=== PATIENT | female | born 1955 | race Caucasian/White ===

== ENCOUNTER → 2018-12-30 | Outpatient (CLI) | payer OTHER ==
[2018-12-30 11:20] LABS: HEMATOCRIT 42.2 % (37.0-47.0); HEMOGLOBIN 14.1 gm/dL (12.0-15.0); MCH 30.4 pg (26.0-34.0); MCHC 33.5 g/dL (28.0-37.0); MCV 90.5 fL (80.0-100.0); MPV 7.2 fl. (7.2-11.1); RBC 4.66 mil/uL (4.20-5.00); RDW-CV 12.6 % (10.5-14.5); WBC 9.1 thou/uL (4.0-11.0)
[2018-12-30 11:54] LABS: ALBUMIN 3.6 g/dL (3.4-5.0); ALKALINE PHOSPHATASE 107 U/L (46-116); ANION GAP 7 mmol/L (7-16); BUN 11 mg/dL (7-18); CALCIUM 9.6 mg/dL (8.5-10.1); CHLORIDE 105 mmol/L (98-107); CO2 30 mmol/L (21-32); CREATININE 0.8 mg/dL (0.6-1.3); GLUCOSE 91 mg/dL (70-99); POTASSIUM 4.4 mmol/L (3.5-5.1); SGOT 26 U/L (15-37); SGPT 25 U/L (30-65); SODIUM 142 mmol/L (136-145); TOTAL BILIRUBIN 0.4 mg/dL (<0.1-1.0); TOTAL PROTEIN 7.2 g/dL (6.4-8.2)
[2018-12-30 13:29] LABS: CHOLESTEROL 231 mg/dL (<200); HDL CHOLESTEROL 39 mg/dL (>40); LDL CHOLESTEROL 154 mg/dL (<100); SERUM ASSESSMENT Clear; TC:HDL 5.9 Ratio (Not establshd); TRIGLYCERIDE 191 mg/dL (<150); VLDL 38 mg/dL (<40)
== END ==
LOC: M.LAB 10:58
PROVIDERS: Internal Medicine Cardiovascular Disease
DX: I25.10 Atherosclerotic heart disease of native coronary artery without angina pectoris (principal)